=== PATIENT | female | born 1955 | race Caucasian/White ===

== ENCOUNTER 2017-09-30 11:02 | Emergency (ER) | END 2017-09-30 15:20 | disposition home or self-care (01) ==

== ENCOUNTER 2018-06-02 11:10 | Emergency (ER) | payer BC, MEDICARE ==
[~2018-06-02] VITALS: Ht 167.6 cm; Wt 63.4 kg
[~2018-06-02 11:10] MED LIST: AMLO-147 PO; CARV12.579 PO; HYDR-3672 PO; MAGN400T28 PO; METR500T PO; MINO2.5T16 PO; MULTI PO; MYCO250C3 PO; NYST1000 PO; PANT40TA4 PO; PHOS250T2 PO; PRED5TAB PO; SULF1TAB31 PO; TACR0.5C18 PO; TACR1CAP26 PO; VALC450 PO
[2018-06-02 11:11] VITALS: BP 140/66; PULSE 79; RESP 20; Ht 167.6 cm; Wt 63.4 kg
--- NOTE | 2018-06-02 12:36 | ERD ---
ER Documentation Chief Complaint Chief Complaint complains of a cough cold and flu symptoms HPI 63-year-old woman with a history of renal transplant on immunosuppressive agents presents with cough times 2 weeks as well as nasal congestion and rhinorrhea. She denies fevers or chills, no vomiting or diarrhea, no chest pain or shortness of breath. ROS All systems reviewed and are negative except as per history of present illness. Medications Home Meds Active Scripts Azithromycin* (Zithromax*) 250 Mg Tablet, 250 MG PO .DarylPACK DIRECTED, #6 TAB TAKE 500 MG (2 TABS) THE FIRST DAY THEN 250 MG (1 TAB) DAYS 2-5 Prov:SERG GLOVER MD 06/02/18 Metronidazole* (Flagyl*) 500 Mg Tablet, 500 MG PO TID for 10 Days, TAB Prov:CUBA MAYER DO 09/30/17 Reported Medications Phosphorus #1 (Phospha 250 Neutral Tablet) 250 Mg Tablet, 250 MG PO TID, TAB 09/30/17 Magnesium Oxide* (Magnesium Oxide*) 400 Mg Tablet, 400 MG PO TID, TAB 09/30/17 valGANciclovir* (Valcyte*) 450 Mg Tablet, 450 MG PO Q OTHER DAY, TAB 09/30/17 Sulfamethoxazole/Trimethoprim* (Bactrim Ds* Tablet) 1 Each Tablet, 1 TAB PO Q WED & , TAB 09/30/17 Prednisone* (Prednisone*) 5 Mg Tab, 20 MG PO DAILY, TAB 09/30/17 Mycophenolate Mofetil* (Cellcept*) 250 Mg Capsule, 1000 MG PO BID, CAP 09/30/17 Tacrolimus* (Prograf*) 1 Mg Capsule, 2 MG PO Q12, CAP 09/30/17 Tacrolimus* (Prograf*) 0.5 Mg Capsule, 0.5 MG PO Q12, CAP 09/30/17 Pantoprazole* (Pantoprazole*) 40 Mg Tablet.dr, 40 MG PO AC BREAKFAST, TAB 09/30/17 Minoxidil* (Lonitin*) 2.5 Mg Tab, 2.5 MG PO BID, TAB IF BPS LESS THAN 160 09/30/17 Hydralazine Hcl* (Hydralazine Hcl*) 50 Mg Tab, 50 MG PO Q8, #90 TAB IF BPS LESS THAN 160 09/30/17 Carvedilol* (Carvedilol*) 12.5 Mg Tablet, 12.5 MG PO BID, #60 TAB 09/30/17 Amlodipine Besylate* (Amlodipine Besylate*) 10 Mg Tablet, 10 MG PO DAILY, #30 TAB 09/30/17 Multivitamins* (Theragran*) 1 Tab Tab, 1 TAB PO DAILY, TAB 09/30/17 Nystatin (Nystatin) 100,000 Unit/1 Ml Oral.susp, 5 ML PO QID, #60 ML 09/30/17 Allergies Allergies: Coded Allergies: Tetracyclines (Verified Allergy, Unknown, 09/30/17) PMhx/Soc End-stage kidney disease status post kidney transplant no longer dependent on dialysis, hypertension, gastritis History of Surgery: Yes (kidney transplant 08/27/17, KIDNEY REMOVAL, fistulas) Anesthesia Reaction: No Hx Neurological Disorder: No Hx Respiratory Disorders: No Hx Cardiac Disorders: Yes (HTN) Hx Psychiatric Problems: No Hx Miscellaneous Medical Probl: Yes (DIALYSIS) Hx Alcohol Use: No Hx Substance Use: No Hx Tobacco Use: No (quit 40 years ago) Physical Exam Vitals Vital Signs Date Temp Pulse Resp B/P (MAP) Pulse Ox O2 O2 Flow FiO2 Time Delivery Rate 06/02/18 97.4 79 20 140/66 98 11:11 (90) Physical Exam Const: No acute distress Head: Atraumatic Eyes: Normal Conjunctiva ENT: Positive nasal congestion and rhinorrhea Neck: Full range of motion. No meningismus. Resp: Clear to auscultation bilaterally Cardio: Regular rate and rhythm, no murmurs Abd: Soft, non tender, non distended. Normal bowel sounds Skin: No petechiae or rashes Back: No midline or flank tenderness Ext: No cyanosis, or edema Neur: Awake and alert x3, no focal deficits or facial asymmetry Psych: Normal Mood and Affect Procedures/MDM Influenza swabs were negative. Chest x-ray was performed, read by me shows no acute infiltrates and no pneumothorax although radiologist read as possible early left retrocardiac infiltrate Patient has had no fever no complaints of shortness of breath and her vital signs are normal although given her renal transplant and overall immunosuppressed state I will treat her as an outpatient with azithromycin Patient feels much better at this time, and vital signs are normal, symptoms have improved. I did give strict instructions to return to the ED if symptoms continue or worsen, patient will otherwise follow-up with primary care physician. Patient understood instructions and agreed to plan. Disclaimer: Inadvertent spelling and grammatical errors are likely due to EHR/dictation software use and do not reflect on the overall quality of patient care. Also, please note that the electronic time recorded on this note does not necessarily reflect the actual time of the patient encounter. Departure Diagnosis: Primary Impression: Upper respiratory infection URI type: acute nasopharyngitis (common cold) Qualified Codes: J00 - Acute nasopharyngitis [common cold] Condition: SERG Cardenas MD Jun 02, 2018 12:36
[2018-06-02] MEDS ORDERED: AZIT250T PO (13:51)
== END 2018-06-02 13:59 | disposition home or self-care (01) ==
LOC: FTE 11:10
DX: J00 Acute nasopharyngitis [common cold] (principal); I12.0 Hypertensive chronic kidney disease with stage 5 chronic kidney disease or end stage renal disease; N18.6 End stage renal disease; Z99.2 Dependence on renal dialysis
CPT/HCPCS: 71045; 87400